=== PATIENT | male | born 1980 | race Caucasian/White ===

== ENCOUNTER 2023-03-14 20:11 | Emergency (ER) | payer SELFPAY ==
[2023-03-14 20:17] VITALS: BP 154/95; PULSE 81; RESP 18; TEMP 36.6; O2SAT 99; BMI 27.5
--- NOTE | 2023-03-14 20:23 | PC.NURSE ---
Patient slid on ice causing injury to right ankle, right ankle swollen, no bruising or break in skin, skin to area pink and warm and pulses present.
--- NOTE | 2023-03-14 20:27 | XR_ITS ---
The [place] [id number] Patient Name: ARIELLA CASTILLO MRN: [id number] date: 1980 Sex: M Assigned Patient Location: ER Current Patient Location: ER Accession/Order Number: [id number] Exam Date: 03/14/2023 21:05 Report Date: 03/14/2023 22:01 At the request of: CELE WINSTON Procedure: XR ankle RT min 3V EXAMINATION: XR ankle RT min 3V, , 03/14/2023 9:05 PM EST INDICATION: fall HISTORY: Ordering Provider Reason for Exam: fall Technologist Note: Additional: COMPARISON: None. TECHNIQUE: Right ankle x-ray: 3 view(s). FINDINGS: No acute fracture. Joints and ankle mortise are anatomically aligned. Soft tissues appear unremarkable. XR/XR ankle RT min 3V IMPRESSION: No acute fracture or traumatic malalignment. Electronically authenticated by: WILLIE DOYLE Date: 03/14/2023 22:01
--- NOTE | 2023-03-14 20:27 | XR_ITS ---
The [address] [address] Patient Name: ARIELLA CASTILLO MRN: [id number] date: 1980 Sex: M Assigned Patient Location: ER Current Patient Location: ER Accession/Order Number: [id number] Exam Date: 03/14/2023 21:05 Report Date: 03/14/2023 22:01 At the request of: CELE WINSTON Procedure: XR foot RT min 3V EXAMINATION: XR foot RT min 3V, , 03/14/2023 9:05 PM EST INDICATION: fall HISTORY: Ordering Provider Reason for Exam: fall Technologist Note: Additional: COMPARISON: None. TECHNIQUE: Right foot x-ray: 3 view(s). FINDINGS: No acute fracture. Joint alignment is anatomic. Joint spaces are preserved. Soft tissues are within normal limits. XR/XR foot RT min 3V IMPRESSION: No acute fracture or traumatic malalignment. Electronically authenticated by: WILLIE DOYLE Date: 03/14/2023 22:01
--- NOTE | 2023-03-14 20:28 | ED_ITS ---
HPI - Extremity Injury (Lower) General Chief Complaint: Extremity Injury, Lower Stated Complaint: SLID ON ICE-ANKLE/LEG INJURY Time Seen by Provider: 03/14/23 20:17 Source: patient Mode of arrival: Wheelchair Limitations: no limitations History of Present Illness HPI Narrative: slipped on ice and fell. States he felt a crack of his ankle when he fell. Denies other injury. No extremity weakness or numbness Related Data Allergies Allergy/AdvReac Type Severity Reaction Status Date / Time torodol AdvReac Mild Agitated Uncoded 03/14/23 20:20 Review of Systems ROS Status of ROS 10 or more systems reviewed and unremark able except as noted in history and below Exam Constitutional Vital Signs, click to edit/add: Last Vital Signs Temp 98 F 03/14/23 20:17 Pulse 81 03/14/23 20:17 Resp 18 03/14/23 20:17 BP 154/95 H 03/14/23 20:17 Pulse Ox 99 03/14/23 20:17 O2 Del Method Room Air 03/14/23 20:17 Common normals: no apparent distress, average body habitus, oriented x3, no limitations, healthy appearing and alert Eye Common normals: EOMs intact bilaterally and conjunctivae normal Respiratory Common normals: normal respiratory effort, no retractions and no use of accessory muscles Extremity Other: mild -mod swelling right ankle Neuro Common normals: oriented x3, CN's II-XII intact bilaterally, moves all extremities and no focal motor deficits Psych Appearance: grossly normal Course Vital Signs Vital signs: Vital Signs Temperature 98 F 03/14/23 20:17 Pulse Rate 81 03/14/23 20:17 Respiratory Rate 18 03/14/23 20:17 Blood Pressure 154/95 H 03/14/23 20:17 Pulse Oximetry 99 03/14/23 20:17 Oxygen Delivery Method Room Air 03/14/23 20:17 Temperature 98 F 03/14/23 20:17 Pulse Rate 81 03/14/23 20:17 Respiratory Rate 18 03/14/23 20:17 Blood Pressure 154/95 H 03/14/23 20:17 Pulse Oximetry 99 03/14/23 20:17 Oxygen Delivery Method Room Air 03/14/23 20:17 MDM - Extremity Injury (Lower) MDM Narrative Medical decision making narrative: patient presents after fall and right ankle injury. xrays neg. Does have mild- mod enlargement of the ankle joint. Patient advised of the neg xrays and discharged home Discharge Plan Discharge Chief Complaint: Extremity Injury, Lower Clinical Impression: Ankle sprain and strain Patient Disposition: Home, Self-Care Instructions: Ankle Sprain (ED) Stand Alone Forms: Portal Instructions Referrals: MARIA A DINH [Primary Care Provider] - 1 week
[2023-03-14 22:42] VITALS: BP 138/88; PULSE 80; RESP 18; O2SAT 99
== END 2023-03-14 22:40 | disposition home or self-care (01) ==
PROVIDERS: Emergency Provider Internal Medicine
DX: S93.401A Sprain of unspecified ligament of right ankle, initial encounter (principal); S96.911A Strain of unspecified muscle and tendon at ankle and foot level, right foot, initial encounter; W00.0XXA Fall on same level due to ice and snow, initial encounter
CPT/HCPCS: 73610; 73630; 99283

== ENCOUNTER 2023-12-14 06:47 | Outpatient (OUT) | payer SELFPAY ==
--- OUTSIDE RECORDS SUMMARY | 2023-12-14 06:49 | XMS_ITS | CCD ---
Author Organization [facility] Care Team Providers Care Conference Producer Name Role Phone DR DOROTHY WORTHY Consulting Arin WORTHY, DR DOROTHY Benson Attending Arin WORTHY, DR DOROTHY Benson Admitting Arin PATTERSON, DR JULES Watson Consulting Unavailable Maria A Dinh Unavailable IVONNE WHALEN Referring Unavailable MARIA A DINH Primary Care Unavailable TRUPTI SALAZAR Attending Unavailable IVONNE WHALEN Referring Unavailable Unavailable Primary Care Provider MARIA A Purcell Primary Care Unavailable Allergies Allergy Classification Reported Allergen(s) Allergy Type Date of Onset Reaction(s) Facility (4 sources) Ketorolac Drug Allergy 0 rage [facility] Repository (3 sources) Ketorolac; Translations: [KETOROLAC] Drug Allergy 5 Mental Status Change [facility] Repository Medications Current Medications Medication Drug Class(es) Dates Sig (Normalized) Sig (Original) predniSONE 20 mg oral tablet (1 source) Start: 10-27-2023 take 20 mg by mouth once daily Prednisone Active 20 MG PO Daily 6 October 27, 2023 12:00am Completed/Discontinued Medications Medication Drug Class(es) Dates Sig (Normalized) Sig (Original) carBAMazepine 200 mg oral tablet (1 source) Mood Stabilizer take 1 tablet by mouth twice daily carBAMazepine (TEGRETOL) 200 mg tablet Take 200 mg by mouth twice daily. 0 Active Comment on above: Take 200 mg by mouth twice daily. esomeprazole 20 mg delayed release oral capsule (5 sources) Proton Pump Inhibitor Start: 09-13-2023 End: 10-27-2023 take 2 capsules by mouth once daily Esomeprazole Magnesium Discontinued 2 CAP PO Daily September 13, 2023 12:00am October 27, 2023 3:29pm FreeTextSi capsules Orally Once a day; Note: Source Status: Taking; Provider: Maria A Eliseo ( ) take 2 capsules by m outh every twenty-four hours NexIUM 24HR 20 MG 2 capsules Orally Once a day Active SUMAtriptan 25 mg oral tablet (5 sources) Serotonin-1b and Serotonin-1d Receptor Agonist Start: 09-13-2023 End: 10-27-2023 take 1 tablet by mouth every two hours Sumatriptan Succinate Discontinued 0 PO .COMPLEX September 13, 2023 12:00am October 27, 2023 3:29pm take 1 tab at onset of headache; if no relief may repeat 1 tab after at least 2 hrs; max = 4 tabs/24 hr PO SUMAtriptan PRN Active Problems Problem Classification Problem Date Documented Da te Episodic/Chronic Conditions associated with dizziness or vertigo (2 sources) Dizziness and giddiness; Translations: [Peripheral vertigo] Episodic Esophageal disorders (3 sources) Gastroesophageal reflux disease; Translations: [Gastro-esophageal reflux disease without esophagitis] Chronic Gastrointestinal hemorrhage (4 sources) Hematemesis; Translations: [Hematemesis] Episodic Headache; including migraine (4 sources) Migraine without aura, not refractory ; Translations: [Migraine without aura, not intractable, without status migrainosus] Chronic Malaise and fatigue (4 sources) Fatigue; Translations: [Chronic fatigue, unspecified] Chronic Nonspecific chest pain (4 sources) Other chest pain; Translations: [OTHER CHEST PAIN] Onset: 3 Episodic Other aftercare (1 source) Encounter for therapeutic drug level monitoring Episodic Other and unspecified benign neoplasm (1 source) Benign neoplasm of cranial nerves; 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 Chronic Other connective tissue disease (1 source) Trochanteric bursitis, left hip; Translations: [Enthesopathy of hip region] 10-27-2023 Episodic Other connective tissue disease (1 source) Iliotibial band syndrome, unspecified leg; Translations: [Other disorders of muscle, ligament, and fascia] 10-27-2023 Episodic Other gastrointestinal disorders (2 sources) Dysphagia; Translations: [Dysphagia, unspecified] Episodic Other lower respiratory disease (2 sources) Cough; Translations: [Cough] Episodic Other non-traumatic joint disorders (1 source) Ankle pain Onset: 4 Episodic Other nutritional; endocrine; and metabolic disorders (2 sources) Body mass index 25-29 - overweight; Translations: [Body mass index (BMI) 27.0-27.9, adult] Episodic Other screening for suspected conditions (not mental disorders or infectious disease) (3 sources) Encounter for screening for cardiovascular disorders; Translations: [Encounter for screening for malignant neoplasm of prostate] Episodic Other upper respiratory infections (2 sources) Nasopharyngitis; Translations: [Acute nasopharyngitis [common cold]] 09-13-2023 Episodic Sprains and strains (1 source) Sprain of other ligament of left ankle, initial encounter Episodic Unclassified (1 source) Vertigo of central origin; Translations: [Vertigo of central origin] Onset: 3 Unclassified (1 source) Fall, Ankle Pain Onset: 4 Results Test Name Value Interpretation Reference Range Facility No Panel InformationOrdered By: Cathy Brito on 09-13-2023 [facility] Office Visit (OTAUCR) ARIELLA CASTILLO ([id number]) 1980 M Date Time Provider Department 12/15/22 9:30 AM TRUPTI SALAZAR During your visit today, we recorded the following information about you: Trupti Salazar, DUNG 12/15/2022 1:59 PM Signed [facility] [place] [facility] Vestibular Test Battery Report Name: Ariella Castillo [facility]#: [id number] Date of Service: 12/15/2022 Date of : 1980 Age: [age] year old Referred by: Ivonne Whalen (Lefty) [address] [place] [address] And is a patient of No primary care provider on file. Referred for: Evaluation of suspected change in hearing, tinnitus, or balance. Referral documented: In an order in [facility] Pretest Instructions: All pretest instructions were completed prior to testing: no alcohol, no medication for dizziness/motion sickness, no sedatives (sleep aids, tranquilizers, antihistamines), no eye makeup and only have a light meal prior to testing. Impressions and Recommendations OVERALL IMPRESSIONS: Abnormal vestibular evaluation. The following history was obtained by way of Ariella Castillo's previous medical record, patient entered questionnaire, and direct patient interview: Ariella Castillo presents with vertigo described as sensation that his eyes are bouncing up and down and loss of equilibrium. He has also experienced three episodes of vertigo (spinning/ shift of equilibrium) while driving, lasting for about a minute. He feels like this type of sensation occurs when he is turning his head left. Patient has been seen by Vest[facility] Rehab for 6 visits, but symptoms have continued to get worse. Symptoms began in February. He notes he pinched a nerve that really set off the symptoms. Associated symptoms include headaches, nausea and clumsiness . Ariella denies any auditory complaints. Of note, Ariella has a history of migraines, however they were not associated with dizziness nor occurred at similar times/have similar triggers. Ariella has not fallen two or more times in the past year or fallen once with with injury. However, he reports a fear of falling. Ariella is not currently using an ambulatory device. 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 Please refer to history of present illness section for further details of presenting symptoms, signs and relevant past medical history. Today's evaluation revealed the following: Findings demonstrate bilateral vestibular system involvement given the following findings: - no caloric irrigation responses (0 total SPV) - no response to ice water caloric irrigation - reduced vestibulo-ocular reflex (VOR) gain observed during rotational chair testing There were no subjective or objective indications of Benign Paroxysmal Positional Vertigo (BPPV). There were no indications of central vestibulo-ocular pathway involvement noted. Normal oculomotor examination. Normal observation of gait and transfers. Normal score (>/= 10 points) obtained on the modified Dynamic Gait Index (mDGI) indicating normal gait performance with varying gait speeds and horizontal and vertical head movements. Postural control findings demonstrate a visual and vestibular dysfunction pattern indicating difficulty in using visual and vestibular information alone for maintenance of stance. Abnormal increased body sway and/or fall reactions observed during the foam support surface conditions. RECOMMENDATIONS: - Continue medical follow up with Ivonne Whalen MD. - Consider otologic follow-up. - Consider referral to vestibular and balance rehabilitation therapy to address bilateral peripheral vestibular system impairment. Treatment emphasis on the followin) sensory substitution exercises to challenge overall balance system to account for inadequate vestibular input, 2) gaze stabilization exercises for VOR gain deficiencies, 3) habituation exercises to reduce triggered symptoms, and 4) general balance/gait exercises to improve functioning during activities of daily living and reduce falling risk. - Consider hearing test. - Consider re-evaluation as medically indicated. - Consider maintaining a healthy sleep schedule in addition to diet, hydration, and exercise. The results and recommendations were explained to Ariella Castillo and he expressed understanding of the information. History Present Illness SUMMARY OF PAST MEDICAL HISTORY: Referring provider Ivonne Whalen, Summary of relevant imaging (directly adapted from report): MRI, normal, no signs of vestibular schwannoma Previous audiologic evaluation: No. Previous encounter(s) with neurology: . Provider: Amanuel.NOMS, consider for migraines and then vestibular schwannoma Previously completed vestibul (more content not included)... Normal [facility] MRI BRAIN W WO CONTRASTon MRI BRAIN W WO CONTRAST EXAMINATION: MRI OF THE BRAIN WITHOUT AND WITH CONTRAST 11/21/2022 7:31 am TECHNIQUE: Multiplanar multisequence MRI of the head/brain was performed without and with the administration of intravenous contrast. COMPARISON: None. HISTORY: ORDERING SYSTEM PROVIDED HISTORY: Vestibular schwannoma (HCC) TECHNOLOGIST PROVIDED HISTORY: STAT Creatinine as needed:->No Reason for Exam: Vestibular schwannoma - Vertigo, central. FINDINGS: INTERNAL AUDITORY CANALS: No cerebellopontine angle mass is identified. The intracanalicular segments of the 7th and 8th cranial nerves are normal. The cochlea, vestibule and semicircular canals are normal. There is no abnormal enhancement within the internal auditory canals. INTRACRANIAL STRUCTURES/VENTRICLE S: There are no areas of restricted diffusion identified to suggest an acute infarct. There is no acute intracranial hemorrhage. No mass effect or midline shift is present. The brain is of normal signal intensities. No abnormal enhancement is identified. There is no sellar or suprasellar mass present. There is no ventriculomegaly or abnormal extra-axial fluid collection present. The proximal portions of the [place] demonstrate normal flow voids. ORBITS: Limited evaluation of the orbits is unremarkable. SINUSES: The paranasal sinuses and mastoid air cells are clear. BONES/SOFT TISSUES: Bone marrow signal intensity is normal. IMPRESSION: Normal MRI of the brain and internal auditory canals. Interpreted by: Bib Giordano MD Signed by: Bib Giordano MD 11/26/22 Final result Normal [facility] CBC AUTO DIFFon 04-09-2022 BASO # 0.1 103/ul Normal 0.0-0.1 Comment on above: Performed By: #### C BC #### [facility] [address] [place] [address] Dr. Eri Welch Basophils/100 WBC (Bld) 1.0 % Normal 0.2-2.0 [facility] Comment on above: Performed By: #### C BC #### [facility] [address] [place] [address] Dr. Eri Welch EO # 0.1 103/ul Normal 0.0-0.7 Comment on above: Performed By: #### C BC #### [facility] [address] [address] [address] Eri Welch Eosinophils/100 WBC (Bld) 1.0 % Normal 0.9-7.0 Comment on above: Performed By: #### C BC #### [facility] [address] [place] [address] Dr. Eri Welch Erythrocyte distribution width (RBC) [Ratio] 12.7 % Normal 11.0-15.0 Comment on above: Performed By: #### C BC #### [facility] [address] [place] [address] Dr. Eri Welch Hematocrit (Bld) [Volume fraction] 43.2 % Normal 42.0-54.0 Comment on above: Performed By: #### C BC #### [facility] [address] [place] [address] Dr. Eri Welch Hemoglobin (Bld) [Mass/Vol] 14.7 g/dL Normal 14.0-18.0 Comment on above: Performed By: #### C BC #### [facility] [address] [place] [address] Dr. Eri Welch IG # 0.02 10e3/ul Normal 0.00-0.03 Comment on above: Performed By: #### C BC #### [facility] [address] [place] [address] Dr. Eri Welch IG % 0.2 % Normal 0.0-0.5 Comment on above: Performed By: #### C BC #### [facility] [address] [place] [address] Dr. Eri Welch LYMPH # 0.9 103/ul Critically low 1.2-3.8 [facility] Comment on above: Performed By: #### C BC #### [facility] [address] [place] [address] Dr. Eri Welch Lymphocytes/100 WBC (Bld) 10.5 % Critically low 20.5-60.0 Comment on above: Performed By: #### C BC #### [facility] [address] [place] [address] Dr. Eri Welch MANUAL DIFF REQ NO Normal [facility] Comment on above: Performed By: #### C BC #### [facility] [address] [place] [address] Dr. Eri Welch MCH (RBC) [Entitic mass] 30.5 pg Normal 25.9-34.0 Comment on above: Performed By: #### C BC #### [facility] [address] [place] [address] Dr. Eri Welch MCHC (RBC) [Mass/Vol] 34.0 g/dL Normal 29.9-35.2 Comment on above: Performed By: #### C BC #### [facility] [address] [place] [address] Dr. Eri Welch MCV (RBC) [Entitic vol] 89.6 fL Normal 80.0-94.0 [facility] Comment on above: Performed By: #### C BC #### [facility] [address] [address] [address] Eri Welch MONO # 0.7 103/ul Normal 0.3-0.8 Comment on above: Performed By: #### C BC #### [facility] [address] [place] [address] Dr. Eri Welch Monocytes/100 WBC (Bld) 9.0 % Normal 1.7-12.0 [facility] Comment on above: Performed By: #### C BC #### [facility] [address] [place] [address] Dr. Eri Welch NEUT # 6.4 103/ul Normal 1.4-6.5 Comment on above: Performed By: #### C BC #### [facility] [address] [place] [address] Dr. Eri Welch Neutrophils/100 WBC (Bld) 78.3 % Critically high 43.0-75.0 Comment on above: Performed By: #### C BC #### [facility] [address] [place] [address] Dr. Eri Welch Platelet mean volume (Bld) [Entitic vol] 8.5 fL Critically low 9.5-13.5 Comment on above: Performed By: #### C BC #### [facility] [address] [place] [address] Dr. Eri Welch PLT 342 103/ul Normal 150-450 [facility] Comment on above: Performed By: #### C BC #### [facility] [address] [place] [address] Dr. Eri Welch RBC 4.82 106/ul Normal 4.70-6.10 [facility] Comment on above: Performed By: #### C BC #### [facility] [address] [place] [address] Dr. Eri Welch WBC 8.2 103/ul Normal 4.0-11.0 [facility] Comment on above: Performed By: #### C BC #### [facility] [address] [place] [address] Dr. Eri Welch D-DIMERon 04-09-2022 D-DIMER <0.19 Normal <=0.59 Comment on above: Performed By: #### D DIM #### [facility] [address] [place] [address] Dr. Eri Welch D-DIMER COMMENTS SEE BELOW Normal [facility] Comment on above: Result Comment: Incr eases in D-Dimer concentration observed with thromboembolic events can be variable due to localization, size, and age of the thrombus. Therefore, a thromboembolic event cannot be diagnosed with certainty on the basis of the reference range. D-Dimers may also be elevated for a variety of disorders including: advanced age, , coronary disease, cancer, liver disease, infection, inflammation, hematoma, DIC, trauma, post-surgery, diabetes, thrombolytic or anticoagulant therapy, stress, and generalized hospitalization. Performed By: #### D DIM #### [facility] [address] [place] [address] Dr. Eri Welch PROF CHEM 8 (BAS METB)on Anion gap [Moles/Vol] 12.6 mmol/L Normal [facility] Comment on above: Performed By: #### B OMER HSTROPN #### [facility] [address] [place] [address] Dr. Eri Welch Calcium [Mass/Vol] 9.5 mg/dL Normal 8.5-10.1 [facility] Comment on above: Performed By: #### B OMER HSTROPN #### [facility] [address] [place] [address] Dr. Eri Welch Chloride [Moles/Vol] 100 mmol/L Normal 98-107 Comment on above: Performed By: #### B OMER HSTROPN #### [facility] [address] [place] [address] Dr. Eri Welch CO2 [Moles/Vol] 28.4 mmol/L Normal 21.0-32.0 [facility] Comment on above: Performed By: #### B OMER HSTROPN #### [facility] [address] [address] [address] Eri Welch Creatinine [Mass/Vol] 0.93 mg/dL Normal 0.70-1.30 Comment on above: Performed By: #### B MP, HSTROPN #### [facility] [address] [address] [address] Eri Welch EGFR-AF CYMRAES >60 Normal >=60 [facility] Comment on above: Performed By: #### B MP, HSTROPN #### [facility] [address] [address] [address] Eri Welch EGFR-NON AF CYMRAES >60 Normal >=60 Comment on above: Performed By: #### B MP, HSTROPN #### [facility] [address] [address] [address] Eri Welch Glucose [Mass/Vol] 94 mg/dL Normal 74-106 [facility] Comment on above: Performed By: #### B MP, HSTROPN #### [facility] [address] [address] [address] Eri Welch Potassium [Moles/Vol] 4.0 mmol/L Normal 3.5-5.1 Comment on above: Performed By: #### B MP, HSTROPN #### [facility] [address] [address] [address] Eri Welch Sodium [Moles/Vol] 137 mmol/L Normal 136-145 [facility] Comment on above: Performed By: #### B MP, HSTROPN #### [facility] [address] [address] [address] Eri Welch Urea nitrogen [Mass/Vol] 11.0 mg/dL Normal 7.0-18.0 Comment on above: Performed By: #### B MP, HSTROPN #### [facility] [address] [address] [address] Eri Welch Urea nitrogen/Creatinine [Mass ratio] 11.8 mg/mg Normal Comment on above: Performed By: #### B MP, HSTROPN #### [facility] [address] [place], [place] [address] Dr. Eri Welch TROPONIN, HIGH SENSITIVITYon 04-09-2022 HSTROP <4.0 Normal 4.0-76.1 Comment on above: Result Comment: CUT- OFF POINTS HAVE BEEN ESTABLISHED BASED ON THE FOURTH UNIVERSAL DEFINITIONS OF MYOCARDIAL INFARCTION. THE UPPER REFERENCE LIMIT (URL) OF TROPONIN, DEFINED THE 99TH PERCENTILE OF cTnI DISTRIBUTION IN A REFERENCE POPULATION, HAS BEEN CONFIRMED THE DECISION THRESHOLD FOR WI DIAGNOSIS. Performed By: #### B MP, HSTROPN #### [facility] [address] [place], [place] [address] Dr. Eri Welch XR CHEST 1 Von 04-09-2022 XR CHEST 1 V EXAMINATION: XR CHEST 1 V HISTORY: CHEST PAIN, UNSPECIFIED COMPARISON: XR abdomen with PA chest 01/30/2021 FINDINGS: LUNGS: No significant pulmonary parenchymal abnormalities. VASCULATURE: No increased pulmonary vasculature. PLEURA: No pneumothorax, effusion, or pleural thickening. CARDIAC: No cardiomegaly or cardiac silhouette abnormality. MEDIASTINUM: No visible mass or adenopathy. BONES: No fracture or visible bone lesion. OTHER: Negative. IMPRESSION: 1. No acute cardiopulmonary process. Stable chest. Electronically authenticated by: JULES PATTERSON Date: 2022-04-09 12:42 Normal Vital Signs Date Time Vital Sign Value Performing Clinician Facility 10-27-2023 15:040 Body height 203.2 cm [facility] 10-27-2023 15:28040 Body mass index (BMI) [Ratio] 28.3 kg/m2 [facility] 10-27-2023 15:040 Body weight 117.02 kg [facility] 10-27-2023 15:28040 Diastolic blood pressure 70 mm[Hg] [facility] 10-27-2023 15:28040 Heart rate 86 /min [facility] 10-27-2023 15:040 Respiratory rate 18 /min [facility] 10-27-2023 15:28040 SaO2% (BldA) [Mass fraction] 98 % [facility] 10-27-2023 15:28-0400 Systolic blood pressure 116 mm[Hg] [facility] 09-13-2023 09:220400 Body height 203.2 cm [facility] 09-13-2023 09:22-0400 Body mass index (BMI) [Ratio] 29 kg/m2 [facility] 09-13-2023 09:22-0400 Body temperature 98.2 [degF] [facility] 09-13-2023 09:22-0400 Body weight 119.91 kg [facility] 09-13-2023 09:22-0400 Heart rate 75 /min [facility] 09-13-2023 09:22-0400 Respiratory rate 18 /min [facility] 09-13-2023 09:22-0400 SaO2% (BldA) [Mass fraction] 97 % [facility] 03-16-2023 10:45-0500 Body height Maria A Dinh Other [employer] [facility] [employer] Other 03-16-2023 10:45-0500 Body mass index (BMI) [Ratio] 27.46 kg/m2 Maria A Dinh Other [employer] Other 03-16-2023 10:45-0500 Body weight 113.4 kg Mraia A Dinh Other [employer] Other 03-16-2023 10:45-0500 Diastolic blood pressure 80 mm[Hg] Maria A Dinh Other [employer] Other 03-16-2023 10:45-0500 Respiratory rate 18 /min Maria A Dinh Other [employer] Other 03-16-2023 10:45-0500 SaO2% (BldA) [Mass fraction] 98 % Maria A Dinh Other [employer] Other 03-16-2023 10:45-0500 Systolic blood pressure 140 mm[Hg] Maria A Dinh Other [employer] Other 10-07-2022 11:00-0400 Body height Maria A Dinh Other [employer] Other 10-07-2022 11:00-0400 Body mass index (BMI) [Ratio] 28.56 kg/m2 Maria A Dinh Other [employer] Other 10-07-2022 11:00-0400 Body temperature 97.5 [degF] Maria A Dinh Other [employer] Other 10-07-2022 11:00-0400 Body weight 117.94 kg Maria A Dinh Other [employer] Other 10-07-2022 11:00-0400 Diastolic blood pressure 88 mm[Hg] Maria A Dinh Other [employer] Other 10-07-2022 11:00-0400 Respiratory rate 18 /min Maria A Dinh Other [employer] Other 10-07-2022 11:00-0400 SaO2% (BldA) [Mass fraction] 98 % Maria A Dinh Other [employer] Other 10-07-2022 11:00-0400 Systolic blood pressure 134 mm[Hg] Maria A Dinh Other [employer] Other Encounters Encounter Date Encounter Type Care Provider Facility Start: 10-27-2023 End: 10-27-2023 [facility] Work Phone: Start: 10-27-2023 End: 10-27-2023 Patient encounter procedure [facility] Work Phone: Start: 09-13-2023 End: 09-13-2023 ambulatory [facility] Work Phone: Start: 09-13-2023 End: 09-13-2023 Patient encounter procedure [facility] Work Phone: Start: 03-16-2023 End: 03-16-2023 ambulatory Maria A Dinh Other [employer] Other Start: 03-16-2023 Office outpatient visit 15 minutes Maria A Dinh [facility] Start: 03-14-2023 End: 03-14-2023 Emergency department patient visit MARIA A DINH [facility] Start: 12-15-2022 End: 12-15-2022 ambulatory TRUPTI SALAZAR Facility:[facility] Start: 12-15-2022 End: 12-15-2022 Patient encounter procedure Trupti Salazar [facility] Work Phone: Audiology Comment on above: Vertigo, peripheral, bilateral (Primary Dx) Start: 11-21-2022 End: 11-24-2022 ambulatory IVONNE Callaway [facility] Start: 10-20-2022 End: 10-20-2022 ambulatory Maria A Dinh Other [employer] Other Start: 10-20-2022 Telephone encounter Maria A Pittman [facility] Start: 10-07-2022 End: 10-07-2022 ambulatory Maria A Dinh Other [employer] Other Start: 10-07-2022 Office outpatient ne w 30 minutes Maria A Dinh [facility] Start: 04-09-2022 End: 04-09-[address] DOROTHY WORTHY Facility:H1 Procedures Date Procedure Procedure Detail Performing Clinician Start: 09-13-2023 Quick Strep (POC) Start: 10-13-2022 Lipid 1996 panel - S jessa or Plasma Trupti Salazar AUD Work Phone: Plan of Treatment Date Care Activity Detail Author Start: 10-06-2029 Urine microalbumin profile DTa P,Tdap,Td Vaccine (2 - Td or Tdap) [facility] Start: 10-14-2027 Lipid 1996 panel - S jessa or Plasma Lipid Screening [facility] Start: 10-24-2022 Influenza vaccination Influenza Vacc ine (#1) [facility] Start: 02-23-2022 Depression Assessment Depression Ass essment [facility] Start: 1997 Hepatitis C Screening Hepatitis C Sc suzyning [facility] Start: 1997 HIV Screening HIV Screening [facility] Start: 1979 Covid-19 Vaccine (#1) Covid-19 Vacci ne (#1) [facility] Start: 1979 Hepatitis B Vaccine (1 of 3 - 3-dose series) Hepatitis B Vaccine (1 of 3 - 3-dose series) [facility] Immunizations Immunization Date Immunization Notes Care Provider Fa yanira 10-07-2019 tetanus toxoid, redu citlali diphtheria toxoid, and acellular pertussis vaccine, adsorbed Maria A Dinh Other [facility] Payers Date Payer Category Payer Unknown [id number] 1960 Self-pay Social History Date Type Detail Facility Unknown if ever smoked [facility] [employer] Other Start: 12-15-2022 Sex Assigned At N [facility] [employer] Other Start: 06-25-2014 End: 09-13-2023 Tobacco smoking status NHIS Never smoked tobacco [facility] Start: 06-25-2014 Alcohol intake Current non-dr floor surfacer of alcohol (finding) [facility] Start: 12-15-2022 History of Social function [facility] National Score (1-100), lower number is lower risk 63 [facility] Start: 1980 Sex Assigned At Not on file C [facility] Start: 1980 Sex Assigned At Male F [facility] Evaluation note 03-16-2023 Note Date & Type Note Facility 03-16-2023 Evaluation note Encounter Date Diagnosis Assessment Notes Feb, High ankle sprain of left lower extremity, initial encounter (ICD-10 - S93.492A) X-rays reviewed with no bony injury or abnormality. Explained to patient that based on his injury and location of his pain he has a high ankle sprain. Patient was given handout detailing the 4 phases of recovery from an ankle sprain. Instructed him that this could take 6 to 10 weeks to fully recover. He is to spend the next couple of weeks in the boot doing protected weightbearing with the crutches. He can then advance to weightbearing in the boot alone without crutches and then advance to coming out of the boot. Each patient take 2 to 3 weeks. If he has any problems along the way with his recovery he is to call and return. He can use ice and NSAIDs for pain control. [facility] Other Progress note 12-15-2022 Note Date & Type Note Facility 12-15-2022 Note HNO ID: [id number] Author: Trupti Salazar AUD Service: ? Author Type: Radiation Safety Officer Type: Progress Notes Filed: 12/15/2022 1:59 PM Note Text: [facility] [place] [facility] Laboratory Vestibular Test Battery Report Name: Ariella Callaway Damonaquilino [facility]#: [id number] Date of Service: 12/15/2022 Date of : 1980 Age: [age] year old Referred by: Ivonne Whalen ([place]) [address] [facility] [place] [address] And is a patient of No primary care provider on file. Referred for: Evaluation of suspected change in hearing, tinnitus, or balance. Referral documented: In an order in [facility] Pret[facility] Instructions: All pretest instructions were completed prior to testing: no alcohol, no medication for dizziness/motion sickness, no sedatives (sleep aids, tranquilizers, antihistamines), no eye makeup and only have a light meal prior to testing. Impressions and Recommendations OVERALL IMPRESSIONS: Abnormal vestibular evaluation. The following history was obtained by way of Ariella Castillo's previous medical record, patient entered questionnaire, and direct patient interview: Ariella Castillo presents with vertigo described as sensation that his eyes are bouncing up and down and loss of equilibrium. He has also experienced three episodes of vertigo (spinning/ shift of equilibrium) while driving, lasting for about a minute. He feels like this type of sensation occurs when he is turning his head left. Patient has been seen by Vestibular Rehab for 6 visits, but symptoms have continued to get worse. Symptoms began in February. He notes he pinched a nerve that really set off the symptoms. Associated symptoms include headaches, nausea and clumsiness . Ariella denies any auditory complaints. Of note, Ariella has a history of migraines, however they were not associated with dizziness nor occurred at similar times/have similar triggers. Ariella has not fallen two or more times in the past year or fallen once with with injury. However, he reports a fear of falling. Ariella is not currently using an ambulatory device. 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 Please refer to history of present illness section for further details of presenting symptoms, signs and relevant past medical history. Today's evaluation revealed the following: Findings demonstrate bilateral vestibular system involvement given the following findings: - no caloric irrigation responses (0 total SPV) - no response to ice water caloric irrigation - reduced vestibulo-ocular reflex (VOR) gain observed during rotational chair testing There were no subjective or objective indications of Benign Paroxysmal Positional Vertigo (BPPV). There were no indications of central vestibulo-ocular pathway involvement noted. Normal oculomotor examination. Normal observation of gait and transfers. Normal score (>/= 10 points) obtained on the modified Dynamic Gait Index (mDGI) indicating normal gait performance with varying gait speeds and horizontal and vertical head movements. Postural control findings demonstrate a visual and vestibular dysfunction pattern indicating difficulty in using visual and vestibular information alone for maintenance of stance. Abnormal increased body sway and/or fall reactions observed during the foam support surface conditions. RECOMMENDATIONS: - Continue medical follow up with Ivonne Whalen MD. - Consider otologic follow-up. - Consider referral to vestibular and balance rehabilitation therapy to address bilateral peripheral vestibular system impairment. Treatment emphasis on the followin) sensory substitution exercises to challenge overall balance system to account for inadequate vestibular input, 2) gaze stabilization exercises for VOR gain deficiencies, 3) habituation exercises to reduce triggered symptoms, and 4) general balance/gait exercises to improve functioning during activities of daily living and reduce falling risk. - Consider hearing test. - Consider re-evaluation as medically indicated. - Consider maintaining a healthy sleep schedule in addition to diet, hydration, and exercise. The results and recommendations were explained to Ariella Castillo and he expressed understanding of the information. History Present Illness SUMMARY OF PAST MEDICAL HISTORY: Referring provider Ivonne Whalen, Summary of relevant imaging (directly adapted from report): MRI, normal, no signs of vestibular schwannoma Previous audiologic evaluation: No. Previous encounter(s) with neurology: . Provider: JadenS, consider for migraines and then vestibular schwannoma Previously completed vestibular rehabilitation (physical therapy): Yes. Number of sessions to date: 6 Vision/visual history: Significant visual symptoms: Yes, blurred vision, worse with distance. Visual correcti (more content not included)... [facility] Instructions 12-15-2022 Patient Instructions Note Date & Type Note Facility 12-15-2022 Instructions Trupti Salazar, AUD - 12/15/2022 11:04 AM EDT Images from the original note were not included. [facility] [place] [facility] For the body to feel balanced, the brain requires input from inner ear organs, eyes, muscles, and joints. Symptoms of dizziness, imbalance, vertigo, or lightheadedness may have many different causes. These symptoms may be due to problems associated with your inner ear, vision, brain, heart, medications, or other health conditions. Today you completed a comprehensive evaluation of your ear vestibular balance system. Our vestibular system involves 3 semicircular canals (our head rotation sensors), 2 otolith organs (our gravity sensors), and our vestibular nerve. Test Summary: The purpose of today's evaluation was to assess for any peripheral, or inner ear involvement for the symptoms you have been experiencing. Based on today s evaluation, your vestibular system appears to be abnormal. Results indicate a bilateral inner ear weakness. Recommendations: - Continue medical follow-up with Ivonne Whalen ([facility]). - Consider otologic follow-up with adult ENT. - Consider further hearing evaluation. Recommend referral to Audiology. - Consider Vestibular & Balance therapy (Physical Therapy) to help reduce symptoms. Treatment emphasis on the followin) sensory substitution exercises to challenge overall balance system to account for inadequate vestibular input, 2) gaze stabilization exercises for VOR gain deficiencies, 3) habituation exercises to reduce triggered symptoms, and 4) general balance/gait exercises to improve functioning during activities of daily living and reduce falling risk. - Consider re-evaluation as medically indicated - Maintain a healthy sleep schedule in addition to diet, hydration, and exercise to help your body function overall. Falling Risk: Dizziness, vertigo and/or imbalance are symptoms that raise concern for falling risk. Below are some tips to reduce falls: Install night lights; always turn on a light before entering a room. Keep walkways well lit. Remove home hazards such as floor throw rugs, loose electrical cords, stools or other small pieces of furniture that can trip people, and all floor clutter. Change positions or turn slowly and have something nearby to hold onto. Keep medical conditions under control by taking prescribed medications and/or following a prescribed diet. Learn to practice exercises that can improve balance, such as Serafin Chi or yoga. Wear low-heeled shoes, walking shoes, or other flexible shoes with good traction Always use handrails when walking up and down stairs. Discuss with a health care provider any concerns you have about falls, or if you experience a fall. documented in this encounter [facility] History of Present illness Narrative 12-15-2022 Trupti Salazar AUD - 12/15/2022 9:30 AM EDT Note Date & Type Note Facility 12-15-2022 History of Presen t illness Narrative [facility] [place] [facility] Laboratory Vestibular Test Battery Report Name: Ariella Castillo CC#: [id number] Date of Service: 12/15/2022 Date of : 1980 Age: [age] year old Referred by: Ivonne Whalen ([place]) [address] [place] [address] And is a patient of No primary care provider on file. Referred for: Evaluation of suspected change in hearing, tinnitus, or balance. Referral documented: In an order in [facility] Instructions: All pretest instructions were completed prior to testing: no alcohol, no medication for dizziness/motion sickness, no sedatives (sleep aids, tranquilizers, antihistamines), no eye makeup and only have a light meal prior to testing. Impressions and Recommendations OVERALL IMPRESSIONS: Abnormal vestibular evaluation. The following history was obtained by way of Ariella Castillo's previous medical record, patient entered questionnaire, and direct patient interview: Ariella Castillo presents with vertigo described as sensation that his eyes are bouncing up and down and loss of equilibrium. He has also experienced three episodes of vertigo (spinning/ shift of equilibrium) while driving, lasting for about a minute. He feels like this type of sensation occurs when he is turning his head left. Patient has been seen by Vestibular Rehab for 6 visits, but symptoms have continued to get worse. Symptoms began in February. He notes he pinched a nerve that really set off the symptoms. Associated symptoms include headaches, nausea and clumsiness . Ariella denies any auditory complaints. Of note, Ariella has a history of migraines, however they were not associated with dizziness nor occurred at similar times/have similar triggers. Ariella has not fallen two or more times in the past year or fallen once with with injury. However, he reports a fear of falling. Ariella is not currently using an ambulatory device. 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 Please refer to history of present illness section for further details of presenting symptoms, signs and relevant past medical history. Today's evaluation revealed the following: Findings demonstrate bilateral vestibular system involvement given the following findings: - no caloric irrigation responses (0 total SPV) - no response to ice water caloric irrigation - reduced vestibulo-ocular reflex (VOR) gain observed during rotational chair testing There were no subjective or objective indications of Benign Paroxysmal Positional Vertigo (BPPV). There were no indications of central vestibulo-ocular pathway involvement noted. Normal oculomotor examination. Normal observation of gait and transfers. Normal score (>/= 10 points) obtained on the modified Dynamic Gait Index (mDGI) indicating normal gait performance with varying gait speeds and horizontal and vertical head movements. Postural control findings demonstrate a visual and vestibular dysfunction pattern indicating difficulty in using visual and vestibular information alone for maintenance of stance. Abnormal increased body sway and/or fall reactions observed during the foam support surface conditions. RECOMMENDATIONS: - Continue medical follow up with Ivonne Whalen MD. - Consider otologic follow-up. - Consider referral to vestibular and balance rehabilitation therapy to address bilateral peripheral vestibular system impairment. Treatment emphasis on the followin) sensory substitution exercises to challenge overall balance system to account for inadequate vestibular input, 2) gaze stabilization exercises for VOR gain deficiencies, 3) habituation exercises to reduce triggered symptoms, and 4) general balance/gait exercises to improve functioning during activities of daily living and reduce falling risk. - Consider hearing test. - Consider re-evaluation as medically indicated. - Consider maintaining a healthy sleep schedule in addition to diet, hydration, and exercise. The results and recommendations were explained to Ariella Castillo and he expressed understanding of the information. History Present Illness SUMMARY OF PAST MEDICAL HISTORY: Referring provider Ivonne Whalen, Summary of relevant imaging (directly adapted from report): MRI, normal, no signs of vestibular schwannoma Previous audiologic evaluation: No. Previous encounter(s) with neurology: . Provider: Porfirio, consider for migraines and then vestibular schwannoma Previously completed vestibular rehabilitation (physical therapy): Yes. Number of sessions to date: 6 Vision/visual history: Significant visual symptoms: Yes, blurred vision, worse with distance. Visual correction: contacts: single focal. CHIEF COMPLAINT: Patient-Entered Questionnaire Scores Vestibular Case History 12/08/2022 I experience the following: Feeling that the room is spinning, Feeling of falling or veering to one side, Feeling as though I could pass out or faint, Feeling unsteady on my feet or like I am swaying while walking, Feeling a general sensation that my perception of the world around me is off or altered My symptoms began: 03/04/2022 My last episode was: 12/08/2022 Symptoms have changed since they began: Yes Symptoms are: Worse Symptoms started after cold or flu: No Specific event caused dizziness: No Free from dizziness or problems with balance in between attacks: No Trouble walking or standing in the dark or dimly lit room: Yes Trouble walking on soft or uneven surfaces (grass or carpet): Yes Dizziness symptoms last: Continuous, I have never had a break in my symptoms since they started Dizziness symptoms occur: Continuous, I have never had a break in my symptoms since they started Dizziness symptoms mainly happen when sitting or standing up too quickly: No Dizziness symptoms mainly happen when changing positions: Yes Change in hearing in: N/A Fullness/pressure feeling in: N/A Ringing or buzzing sound in: Left ear Pain in: N/A Drainage from: N/A Sensitivity to sound: No Your voice sounds loud to you: No Hearing checked in last year: No Vision-related symptoms with dizziness: Feeling like my vision is bouncing with head movements Dizziness can occur from visual stimuli: No Wear glasses or contacts: Yes Vision checked in last year Yes Symptoms with dizziness: Head pain, Head throbbing, Nausea, Vision changes, Motion Sickness, Numbness in face, arms or legs, Confusion or memory loss Diagnosed with migraines or headaches: Yes Experience migraines or headaches: Yes Recent head or neck injury: No Added stress to life: Yes Dizziness worse with stress or when anxious: Yes Restrict activities due to dizziness symptoms: Yes Fallen in the past year: Yes Fear of falling: Yes Symptoms of dizziness improved by: Lying down, Rest PROMIS Global Health Scale 12/08/2022 Physical Health Percentile 31 Mental Health Percentile 89 Percentiles provide an indication of how a patient's score ranks in relation to the [place] general population. > 31st percentile is within normal limits or better * < 31st percentile is at least SD worse than population, which may be clinically relevant < 16th percentile is at least 1 SD worse than population and warrants attention Based on review of the past medical history and chief complaint, the following clinical questions were explored during today's appointment: Plan for today's objective vestibular testing based on these clinical questions: Videonystagmography (VNG), Rotational Chair, and Vestibular Evoked Myogenic Potentials (VEMPs) Medical History There is no problem list on file for this patient. Medications: Current Outpatient Medications on File Prior to Visit Medication Sig carBAMazepine (TEGRETOL) 200 mg tablet Take 200 mg by mouth twice daily. No current facility-administered medications on file prior to visit. Family/Social History No family history on file. Social History Tobacco Use Smoking status: Never Substance Use Topics Alcohol use: No Drug use: No Physical/Vestibular Evaluation GENERAL: Cognitive Status: Alert, Oriented, and Cooperative EARS: Right ear: Ear canal clear Left ear: Ear canal clear EYES/OCULOMOTOR: Extra-ocular range of motion (CN III, IV, ): normal. Conjugate eye movements: Yes Smooth pursuit (horizontal and vertical): normal Saccades (horizontal, vertical, oblique): normal Cover uncover test: normal [id number] test: normal NECK: Cervical rotation right restrictions: none. Reported pain: none Cervical rotation left restrictions: none. Reported pain: none Cervical extension restrictions: none. Reported pain: none Cervical flexion restrictions: none. Reported pain: none VESTIBULAR: Head impulses of semi-circular canals: abnormal, possible saccades GAIT AND BALANCE: Observation of gait and transfer: normal. Modified Dynamic Gait Index (mDGI): Total score 10/12. normal gait performance. Modified Clinical Test of Sensory Interaction on Balance (MCTSIB): abnormal postural control. Eyes open, firm surface: Fall Reactions: 0 Eyes closed , firm surface: Fall Reactions: 0 Eyes open, foam surface: Fall Reactions: increased, sway Eyes closed, foam surface: Fall Reactions: fall reactions OBJECTIVE VESTIBULAR MEASURES: Videonystagmography Examination (VNG): CPT codes: 67465, 94837, 98099, 32558. Description of Procedure: objective assessment of peripheral (e.g., low frequency horizontal canal VOR function), status of compensation, Benign Paroxysmal Positional Vertigo (BPPV), and central vestibulo-ocular pathway (oculomotor examination). Procedure time: 30-45 minutes. Note: The fast component (direction) of all nystagmus is reported from the patient's perspective. Calibration procedure: unremarkable Saccade Performance test (pseudo-random presentation of a laser target; 5 - 50 deg horizontal steps): Latency values: normal Accuracy values: normal Peak Velocity values: normal Reported symptoms: none Pursuit Tracking test (sinusoidal presentation of a laser target; .1-.6 Hz, 10-60 deg/sec): Gain values: normal. Evidence of saccadic pursuit: No. Reported symptoms: none Spontaneous & Gaze-Evoked Nystagmus test: Nystagmus center gaze with fixation: none. Temporal profile: n/a. Saccadic intrusions/oscillations: none. Symptoms: none. Nystagmus center gaze without fixation: none. Temporal profile: n/a. Saccadic intrusions/oscillations: none. Symptoms: none. Nystagmus right gaze with fixation: none.Temporal profile: n/a. Saccadic intrusions/oscillations: none. Symptoms: none. Nystagmus right gaze without fixation: none. Temporal profile: n/a. Saccadic intrusions/oscillations: none. Symptoms: none. Nystagmus left gaze with fixation: none.Temporal profile: n/a. Saccadic intrusions/oscillations: none. Symptoms: none. Nystagmus left gaze without fixation: none. Temporal profile: n/a. Saccadic intrusions/oscillations: none. Symptoms: none. Nystagmus up gaze with fixation: none. Temporal profile: n/a. Saccadic intrusions/oscillations: none. Symptoms: none. Nystagmus up gaze without fixation: none. Temporal profile: n/a. Saccadic intrusions/oscillations: none. Symptoms: none. Nystagmus down gaze with fixation: none. Temporal profile: n/a. Saccadic intrusions/oscillations: none. Symptoms: none. Nystagmus down gaze without fixation: none. Temporal profile: n/a. Saccadic intrusions/oscillations: none. Symptoms: none. Note: remainder of testing completed without fixation unless otherwise specified. Head shaking test: Nystagmus post-horizontal head shake: 3 d/s left-beating. Temporal profile: decaying. Symptoms: dizziness. Nystagmus post-vertical head shake: 3 d/s up-beating. Temporal profile: decaying. Symptoms: none. Neck torsion test: Nystagmus neck torsion right: 2 d/s left-beating. Temporal profile: intermittent. Symptoms: slight dizziness. Nystagmus neck torsion left: none. Temporal profile: n/a. Symptoms: slight dizziness. Vertical Semi-circular Canal BPPV Nystagmus tests: Nystagmus Denair-Hallpike right ear down position: 6 d/s up-beating. Temporal profile: decaying. Symptoms: none. Nystagmus Harpreet-Hallpike right ear return to sit position: none. Temporal profile: n/a. Symptoms: none. Nystagmus Denair-Hallpike left ear down position: 3 d/s right-beating. Temporal profile: decaying. Symptoms: none. Nystagmus Denair-Hallpike left ear return to sit position: none. Temporal profile: n/a. Symptoms: dizziness. Nystagmus straight-back head-hanging position: none. Temporal profile: n/a. Symptoms: none. Nystagmus straight back head-hanging return to sit position: none. Temporal profile: n/a. Symptoms: dizziness. Horizontal Semi-circular Canal BPPV and Positional Nystagmus tests: Nystagmus head center supine: none.Temporal profile: n/a. Symptoms: none. Nystagmus head (roll) right: none. Temporal profile: n/a. Symptoms: none. Nystagmus head (roll) left: none. Temporal profile: n/a. Symptoms: none. Monothermal water calorics screening (30 second irrigations, supine position): Unilateral Weakness (UW%): no response . Fixation Suppression Index (FI%): no response. (Note: normal FI% < 0.6) Nystagmus pre-caloric position (10 sec screening): none. Ice water calorics (2 cc over 20 seconds irrigation, supine position): No response to ice water irrigation suggesting total loss of low frequency function of the horizontal canal/afferent pathway. Nystagmus pre-caloric position (10 sec screening): none. Vestibular Evoked Myogenic Potentials (VEMP): CPT code: 44664 Description of Procedure: short-latency myogenic potentials produced with sound or vibration originating from otolith organs (saccule and utricle). Cervical (cVEMPs) are recorded from the sternocleidomastoid muscles (patient in a semi-reclined position, head lifted and rotated away from ear stimulated): Ocular (oVEMPs) recorded from the inferior oblique extra-muscles (patient seated with 30 deg upward gaze). Screening for SSCD (superior semi-circular canal dehiscence) conducted if medically warranted. Procedure time: 30 minutes. Note: Integrity of the auditory stimulus, electrode placement and muscle contraction were verified. Otoscopy performed prior to testing confirming unoccluded canals. Amplitude and latency values represent best responses if more than 1 waveform is obtained. Refer to scanned documents for VEMP waveform details. Cervical (cVEMP): normal. Results are not consistent with superior semi-circular canal dehiscence (SSCD) or saccule, inferior vestibular nerve, and/or cVEMP pathway involvement in both ears. Right ear: testing obtained with air conduction, amplitude and latencies normal; SSCD screen: negative Left ear: testing obtained with air conduction, amplitude and latencies: normal; SSCD screen: negative Interaural amplitude difference cVEMP (abnormal > 30%): 14% (RE-LE/RE+LE)100 - normal Waveforms were scaled according to the average EMG values obtained throughout testing: No Rotational Chair: CPT code 29140 Description of Procedure: objective assessment of peripheral vestibular system function, in particular bilateral peripheral function (lateral canal VOR function in low-mid frequencies). Procedure time: 20 minutes. Calibration procedure: unremarkable. Sinusoidal Harmonic Acceleration (SHA) testing (at 0.01, 0.02, 0.04, 0.08, 0.16, 0.32, and 0.64 Hz): Gain values: Abnormal. Reduced VOR gain at all frequencies tested. Phase values: Phase could not be calculated at 0.01, 0.02, 0.04, 0.08, 0.16, and 0.32 Hz due to abnormally low VOR gain (<0.2). Symmetry values: Symmetry could not be calculated at 0.01, 0.02, 0.04, 0.08, 0.16, and 0.32 Hz due to abnormally low VOR gain (<0.2). Suppression of vestibulo-ocular reflex (SHA at 0.04 Hz) with visual input: normal. It was my pleasure to evaluate Ariella Castillo. If you have any questions regarding this information, please contact me at [phone]. Dung Jones, CCC/A copy to: Ivonne Whalen ([place]ef[place]) [address] [facility] [address] [address] documented in this encounter [facility] Evaluation note 10-20-2022 Note Date & Type Note Facility 10-20-2022 Evaluation note Encounter Date Diagnosis Assessment Notes Sep, Low testosterone in male (ICD-10 - R79.89) [facility] Other Evaluation note 10-07-2022 Note Date & Type Note Facility 10-07-2022 Evaluation note Encounter Date Diagnosis Assessment Notes Sep, Chronic fatigue (ICD-10 - R53.82) Patient has been having increasing chronic fatigue that does not appear to be related to sleep difficulties. We will obtain lab work to assess underlying metabolic and hormonal issues as well as vitamin deficiencies. Patient will be contacted with the results and will determine what further work-up or treatment is needed based off that. Sep, Migraine without aura and without status migrainosus, not intractable (ICD-10 - G43.009) Patient has intermittent migraines that he is working with neurology for and who is providing him medication. I recommended continuing following with them and their medication treatment. Sep, Vertigo (ICD-10 - R42) Patient has longstanding vertigo and has been working with neurology as well as physical therapy. I did suggest cyproheptadine. He states that neurology has tried him on for 5 different medications and he would like to look at his list which she has at home to see what was previously tried before trying something new. He will call if you would like to try the cyproheptadine medication. Sep, Medication monitoring encounter (ICD-10 - Z51.81) Sep, Encounter for screening for cardiovascular disorders (ICD-10 - Z13.6) Sep, Screening for prostate cancer (ICD-10 - Z12.5) [facility] Other Evaluation note Note Date & Type Note Facility Evaluation note Diagnosis Vertigo, peripheral, bilateral- Primary documented in this encounter [facility] Evaluation note Note Date & Type Note Facility Evaluation note No assessment information availa ble [facility] Work Phone: Evaluation note Note Date & Type Note Facility Evaluation note Diagnosis Onset Date Acute nasopharyngitis acute Trochanteric bursitis, left hip noneactive IT band syndrome noneactive [facility] Work Phone: History general Narrative - Reported Note Date & Type Note Facility History general Narrative - Reported Type Surgical History hernia x 2 [facility] Other Summary Purpose Family History No Family History Records FoundNo Family History Records FoundNo Family History Records FoundNo Family History Records Found Advance Directives Advance Directive Response Recorded Date/ Time Advance Directives No September 12 9:13am Chief Complaint and Reason for Visit Chief Complaint sore throat Chief Complaint sore throat Left hip pain/ calf pain Reason for Visit Acute nasopharyngiti s Trochanteric bursitis, left hip IT band syndrome Additional Source Comments (unrecognized sect ion and content) No Status Records FoundNo Status Records FoundNo Status Records FoundNo Status Records Found INFORMATION SOURCE (unrecogn ized section and content) DATE CREATED AUTHOR 04/12/2022 [facility] DATE CREATED AUTHOR AUTHOR'S ORGANIZ ATION 11/28/2022 [facility] DATE CREATED AUTHOR AUTHOR'S ORGANIZ ATION 12/15/2022 [facility] DATE CREATED AUTHOR AUTHOR'S ORGANIZ ATION 03/15/2023 [facility] REASON FOR VISIT (unrecogniz ed section and content) Specialty Diagnoses / Procedures Referred By Contac t Referred To Contact [facility] Diagnoses Dizziness and giddiness Other muscle spasm Nausea with vomiting, unspecified Migraine without aura, intractable, without status migrainosus Unspecified convulsions Procedures Vestibular Test Battery Ivonne Whlaen MD [address] [address] [facility] [address] [place] [address] Referral ID Status Reason Start Date Expiration Date V isits Requested Visits Authorized [id number] Closed Financial Clearance Required - Self Pay Patient Cleared - True Self-Pay required payment collected 12/05/2022 02/03/2023 1 1 Source Comments (unrecognize d section and content) In the event this informatio n is protected by the Federal Confidentiality of Alcohol and Drug Abuse Patient Records regulations: The Federal rules restrict any use of the information to criminally investigate or prosecute any alcohol or drug abuse patient.[facility] Care Teams (unrecognized sec tion and content) Team Status: Active Member Role Status Dates Maria A Dinh DO Primary Care Provider Active Team Status: Inactive Member Role Status Dates Maria A Dinh DO Primary Care Provider Active Start: September 13, 2023 End: September 13, 2023 Cathy Brito APRN Attending Provider Active Start: September 13, 2023 End: September 13, 2023 Team Status: Inactive Member Role Status Dates Maria A Dinh DO Primary Care Provider Active Start: October 27, 2023 End: October 27, 2023 Ham aRsmussen , ONCOLOGY PATIENT NAVIGATOR Attending Provider Active Start: October 27, 2023 End: October 27, 2023 Goals (unrecognized section and content) Goals may be documented in a n alternate section FOR RECORDS PERTAINING TO PATIENTS WHO ARE OR HAVE BEEN ENROLLED IN A CHEMICAL DEPENDENCY/SUBSTANCEABUSE PROGRAM, SOME INFORMATION MAY BE OMITTED. This clinical summary was aggregated from multiple sources. Caution should be exercised in using it in the provision of clinical care. This summary normalizes information from multiple sources, and as a consequence, information in this document may materially change the coding, format and clinical context of patient data. In addition, data may be omitted in some cases. CLINICAL DECISIONS SHOULD BE BASED ON THE PRIMARY CLINICAL RECORDS. [facility]. provides no warranty or guarantee of the accuracy or completeness of information in this document.
== END 2023-12-14 06:48 | disposition home or self-care (01) ==
LOC: LAB 06:47
DX: Z00.00 Encounter for general adult medical examination without abnormal findings (principal); R53.82 Chronic fatigue, unspecified; Z51.81 Encounter for therapeutic drug level monitoring; Z13.6 Encounter for screening for cardiovascular disorders; Z12.5 Encounter for screening for malignant neoplasm of prostate
CPT/HCPCS: 36415; 84402; 84403